=== PATIENT | female | born 1995 ===

== ENCOUNTER 2025-04-13 13:10 | Outpatient (AMB) | payer OTHER, SELFPAY ==
--- OUTSIDE RECORDS SUMMARY | 2025-04-13 13:13 | XMS_ITS | Clinical Summary ---
Author Organization [facility] Address [address] [place] [address] Phone Care Team Providers Care Commercial Director Name Role Phone Delaney Benítez MD Primary Care Provider [phone] Allergies Active Allergy Reactions Criticality Noted Date Comments Penicillins Hives,Itching High 09/09/2017 Other Reaction(s): S.O.B. Pertussis Vaccine,Adsorbed High Other Reaction(s): RASH, S.O.B. Pertussis Vaccines Seizures High 11/09/2024 Medications albuterol 2.5 mg /3 mL (0.083 %) nebulizer solution USE 1 VIAL VIA NEBULIZER EVERY 4 TO 6 HOURS Active Ventolin HFA 90 mcg/actuation inhaler INHALE 1 PUFF BY MOUTH FOUR TIMES DAILY FOR 30 DAYS NEEDED FOR WHEEZING Active lidocaine (LIDODERM) 5 % patchIndication s:Right-sided chest wall pain Apply 1 patch topically 1 (one) time each day. Remove & discard patch within 12 hours or as directed by . 30 each 5 04/26/20 25 Active Encounters Date Type Department Care Team Description 03/27/2025 5:22 PM EDT - 03/27/2025 5:[address] 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 Hydradenitis DX:Hydradenitis Inflammatory arthritis DX:Inflam matory arthritis Pseudoseizure DX:Pseudoseizure Obesity DX:Obesity Bipolar 1 disorder (CMS/HCC V24, CMS/HCC V28) Family History Medical History Relation Name Comments Seizures Brother Autism, schizop hrenia Depression Father Hypertension Maternal Grandfather schizop hrenia Thyroid disease Maternal Grandmother Depression Mother thyroid partial ly removed Other: polycystic ovarian syndrome Mother Thyroid disease Mother Diabetes Paternal Grandfather Parkinson's Disease Paternal Grandfather Depression Sister bipolar Other: polycystic ovarian syndrome Sister Breast cancer Neg Hx Colon cancer Neg Hx Ovarian cancer Neg Hx Relation Name Status Comments Brother Alive Father Alive Maternal Grandfather Alive Maternal Grandmother Alive Mother Alive Paternal Grandfather Alive Paternal Grandmother Alive Sister Alive Social History Tobacco Use Types Packs/Day Years Used Date Smoking Tobacco: Never Smokeless Tobacco: Never Alcohol Use Standard Drinks/Week Comments Not Currently 0 (1 standard drink = 0.6 oz pur e alcohol) Comments No Sex and Gender Information Value Date Recorded Sex Assigned at Female 11/09/2024 9:55 AM EST Legal Sex Female 1:01 AM EST Gender Identity Female 11/09/2024 9:55 AM EST Sexual Orientation Straight 11/09/2024 9: 55 AM EST Obstetrics History Last Filed Vital Signs Vital Sign Reading Time Taken Comments Blood Pressure 134/89 03/27/2025 12:22 PM EDT Pulse 88 03/27/2025 12:22 PM EDT Temperature 36.9 C (98.4 F) 03/27/2025 12:22 PM EDT Respiratory Rate 18 03/27/2025 12:22 PM EDT Oxygen Saturation 97% 03/27/2025 12:22 PM EDT Inhaled Oxygen Concentration - - Weight 126 kg (277 lb) 03/27/2025 12:22 PM EDT Height 160 cm (5' 3 ) 03/27/2025 12:22 PM EDT Body Mass Index 49.07 03/27/2025 12:22 PM EDT Plan of Treatment Health Maintenance Due Date Last Done Comments Hepatitis B Vaccines (1 of 3 - 19+ 3-dose series) 2016 Pneumococcal Vaccine: Pediatrics (0 to 5 Years) and At-Risk Patients (6 to 49 Years) (2 of 2 - PCV) 03/29/2022 03/29/2021 Cholesterol Screening (Lipid Panel) 08/10/2022 HIV Screening 08/10/2022 Hepatitis C Screening 08/10/2022 Social Influencers of Health Screening 08/10/2022 COVID-19 Vaccine ( season) 2024 04/06/2021, 03/16/2021 Depression Screening 09/07/2024 Cervical Cancer Screening: Pap Smear 10/08/2024 10/08/2021, 03/16/2018 Influenza Vaccine (#1) 2025 , 05/17/2023, 07/25/2022, Additional history exists DTaP,Tdap,and Td Vaccines (3 - Td or Tdap) 03/29/2031 03/29/2021, 09/27/2008 HPV Vaccines Completed 10/08/2011, 09/08, 09/27/2008 Meningococcal ACWY Vaccine Completed 12/06/2013, HIB Vaccines Aged Out No longer eligi ble based on patient's age to complete this topic Hepatitis A Vaccines Aged Out No long er eligible based on patient's age to complete this topic IPV Vaccines Aged Out No longer eligi ble based on patient's age to complete this topic MMR Vaccines Aged Out No longer eligi ble based on patient's age to complete this topic Meningococcal B Vaccine Aged Out No l onger eligible based on patient's age to complete this topic RSV Immunization Patients Under 20 months Aged Out No longer eligible based on patient's age to complete this topic Varicella Vaccines Aged Out No longer eligible based on patient's age to complete this topic Procedures Procedure Name Priority Date/Time Associated Diagnosis Comments URINALYSIS WITH REFLEX MICROSCOPIC STAT 03/27/2025 2:19 PM EDT URINALYSIS WITH REFLEX MICROSCOPIC STAT 03/27/2025 2:19 PM EDT CBC WITH AUTO DIFFERENTIAL STAT 03/27/2025 1:22 PM EDT LIPASE STAT 03/27/2025 1:22 PM EDT COMPREHENSIVE METABOLIC PANEL STAT 03/27/2025 1:22 PM EDT CBC AND DIFFERENTIAL STAT 03/27/2025 1:22 PM EDT PAP SMEAR Routine 10/08/2021 from Last 3 Months or Most Recently Relevant to Health Maintenance Results * Urinalysis with reflex microscopic (03/27/2025 2:19 PM EDT) Specific Rowe Urine 1.023 1.003 - 1.030 LAB URINALYSIS - AUTOMATED METHOD [facility] pH, Urine 6.0 5.0 - 8.0 pH LAB URINALYSIS - AUTOMATED METHOD 03/27/2025 3:43 PM [facility] Leukocytes, Urine Negative Negative LAB URINALYSIS - AUTOMATED METHOD 03/27/2025 3:43 PM [facility] Nitrite, Urine Negative Negative LAB URINALYSIS - AUTOMATED METHOD 03/27/2025 3:43 PM [facility] Protein, Urine Negative <=Trace mg/dL LAB URINALYSIS - AUTOMATED METHOD 03/27/2025 3:43 PM [facility] Glucose, Urine Negative Negative mg/dL LAB URINALYSIS - AUTOMATED METHOD 03/27/2025 3:43 PM [facility] Ketones, Urine Negative Negative mg/dL LAB URINALYSIS - AUTOMATED METHOD 03/27/2025 3:43 PM [facility] Urobilinogen, Urine 1.0 0.2 - 1.0 mg/dL LAB URINALYSIS - AUTOMATED METHOD 03/27/2025 3:43 PM [facility] Bilirubin, Urine Negative Negative LAB URINALYSIS - AUTOMATED METHOD 03/27/2025 3:43 PM [facility] Blood, Urine Negative Negative LAB URINALYSIS - AUTOMATED METHOD 03/27/2025 3:43 PM EDT [facility] Urine Urine specimen obtained by clean catch procedure / Unknown Non-blood Collection / Unknown 03/27/2025 2:19 PM EDT 03/27/2025 3:39 PM EDT us Cherelle Toribio MD LAB URINE ORDERABLES Final Resul t [facility] [address] [place] [address], [place] [phone] * (ABNORMAL) CBC auto differential (03/27/2025 1:22 PM EDT) WBC 10.2 4.8 - 10.8 K/mcL LAB HEMETOLOGY METHOD 03/27/2025 1:49 PM EDT [facility] RBC 5.10(H) 3.80 - 4.80 M/mcL LAB HEMETOLOGY METHOD 03/27/2025 1:49 PM EDT [facility] Hemoglobin 13.3 11.5 - 16.0 g/dL LAB HEMETOLOGY METHOD 03/27/2025 1:49 PM EDT [facility] Hematocrit 40.7 35.0 - 47.0 % LAB HEMETOLOGY METHOD 03/27/2025 1:49 PM EDT [facility] MCV 79.6 79.0 - 98.0 FL LAB HEMETOLOGY METHOD 03/27/2025 1:49 PM EDT [facility] MCH 26.0(L) 27.0 - 32.0 pcg LAB HEMETOLOGY METHOD 03/27/2025 1:49 PM [facility] MCHC 32.7 32.0 - 37.0 g/dL LAB HEMETOLOGY METHOD 03/27/2025 1:49 PM EDT [facility] RDW 13.0 11.0 - 15.0 % LAB HEMETOLOGY METHOD 03/27/2025 1:49 PM [facility] Platelets 240 130 - 400 K/mcL LAB HEMETOLOGY METHOD 03/27/2025 1:49 PM [facility] MPV 10.0 7.0 - 11.0 FL LAB HEMETOLOGY METHOD 03/27/2025 1:49 PM [facility] NRBC 0.0 <1.0 % LAB HEMETOLOGY METHOD 03/27/2025 1:49 PM [facility] NRBC Absolute 0.00 <0.10 K/mcL LAB HEMETOLOGY METHOD 03/27/2025 1:49 PM [facility] Neutrophils Relative 70.2 % LAB HEMETOLOGY METHOD 03/27/2025 1:49 PM [facility] Lymphocytes Relative 22.0 % LAB HEMETOLOGY METHOD 03/27/2025 1:49 PM [facility] Monocytes Relative 4.4 % LAB HEMETOLOGY METHOD 03/27/2025 1:49 PM [facility] Eosinophils Relative 2.7 % LAB HEMETOLOGY METHOD 03/27/2025 1:49 PM [facility] Basophils Relative 0.2 % LAB HEMETOLOGY METHOD 03/27/2025 1:49 PM [facility] Immature Granulocytes Relative 0.5 % LAB HEMETOLOGY METHOD 03/27/2025 1:49 PM [facility] Neutrophils Absolute 7.16(H) 1.50 - 7.00 K/mcL LAB HEMETOLOGY METHOD 03/27/2025 1:49 PM [facility] Lymphocytes Absolute 2.25 1.00 - 5.00 K/mcL LAB HEMETOLOGY METHOD 03/27/2025 1:49 PM [facility] Monocytes Absolute 0.45 0.20 - 1.00 K/mcL LAB HEMETOLOGY METHOD 03/27/2025 1:49 PM EDT [facility] Eosinophils Absolute 0.28 0.00 - 0.50 K/[facility] LAB HEMETOLOGY METHOD 03/27/2025 1:49 PM EDT [facility] Basophils Absolute 0.02 0.00 - 0.20 K/[facility] LAB HEMETOLOGY METHOD 03/27/2025 1:49 PM EDT [facility] Immature Granulocytes Absolute 0.05(H) 0.00 - 0.03 K/[facility] LAB HEMETOLOGY METHOD 03/27/2025 1:49 PM EDT [facility] Blood Venous blood specimen / Unknown Venipuncture / Unknown 03/27/2025 1:22 PM EDT 03/27/2025 1:34 PM EDT us Cherelle Toribio MD LAB BLOOD ORDERABLES Final Resul t Performing Organization Address City/[facility]/ZIP Co de Phone Number [facility] [address] [place] [address], [place] [phone] * Lipase (03/27/2025 1:22 PM EDT) [facility] Lipase 15 13 - 75 unit/L LAB CHEMISTRY METHOD 03/27/2025 2:36 PM EDT [facility] Blood Venous blood specimen / Unknown Venipuncture / Unknown 03/27/2025 1:22 PM EDT 03/27/2025 1:34 PM EDT us Cherelle Toribio MD LAB BLOOD ORDERABLES Final Resul t [facility] [address] [place] [address], [place] [phone] * (ABNORMAL) Comprehensive metabolic panel (03/27/2025 1:22 PM EDT) [facility] Sodium 138 133 - 145 mmol/L LAB CHEMISTRY METHOD 03/27/2025 2:38 PM [facility] Potassium 4.3 3.5 - 5.5 mmol/L LAB CHEMISTRY METHOD 03/27/2025 2:38 PM [facility] Chloride 107 96 - 110 mmol/L LAB CHEMISTRY METHOD 03/27/2025 2:38 PM [facility] CO2 26 21 - 32 mmol/L LAB CHEMISTRY METHOD 03/27/2025 2:38 PM [facility] Anion Gap 5 3 - 11 LAB CHEMISTRY METHOD 03/27/2025 2:38 PM [facility] Glucose 91 70 - 100 mg/dL LAB CHEMISTRY METHOD 03/27/2025 2:38 PM [facility] BUN 15 5 - 25 mg/dL LAB CHEMISTRY METHOD 03/27/2025 2:38 PM [facility] Creatinine 0.62 0.50 - 1.10 mg/dL LAB CHEMISTRY METHOD 03/27/2025 2:38 PM [facility] eGFR 125 >=60 mL/min/1. 73m2 LAB CHEMISTRY METHOD 03/27/2025 2:38 PM [facility] Comment:Calculation based on the Chronic Kidney Disease Epidemiology Collaboration (CKD-EPI) equation refit without adjustment for race. BUN/Creatinine Ratio 24.2 LAB CHEMISTRY METHOD 03/27/2025 2:38 PM [facility] Calcium 9.6 8.5 - 10.5 mg/dL LAB CHEMISTRY METHOD 03/27/2025 2:38 PM [facility] AST (SGOT) 9(L) 10 - 42 unit/L LAB CHEMISTRY METHOD 03/27/2025 2:38 PM [facility] ALT (SGPT) 22 10 - 60 unit/L LAB CHEMISTRY METHOD 03/27/2025 2:38 PM [facility] Alkaline Phosphatase 79 42 - 121 unit/L LAB CHEMISTRY METHOD 03/27/2025 2:38 PM EDT [facility] Total Protein 7.6 6.0 - 8.0 g/dL LAB CHEMISTRY METHOD 03/27/2025 2:38 PM EDT [facility] Albumin 4.1 3.2 - 5.0 g/dL LAB CHEMISTRY METHOD 03/27/2025 2:38 PM EDT [facility] Total Bilirubin 0.3 0.0 - 1.4 mg/dL LAB CHEMISTRY METHOD 03/27/2025 2:38 PM EDT [facility] Blood Venous blood specimen / Unknown Venipuncture / Unknown 03/27/2025 1:22 PM EDT 03/27/2025 1:34 PM EDT Cherelle Toribio MD LAB BLOOD ORDERABLES Final Resul t Performing Organization Address City/[facility] Co de Phone Number [facility] [address] [place] [address], [place] [phone] * Pap smear (10/08/2021) 10/08/2021 Narrative HISTORICAL TESTING LAB RESULTING AGENCY - 10/23/2021 2:05 PM EST [id number] THINPREP PAP, IMAGED: NEGATIVE FOR SQUAMOUS INTRAEPITHELIAL LESION AND MALIGNANCY . ABUNDANT BLOOD PRESENT. NOTE: ADEQUACY EVALUATED SATISFACTORY FOLLOWING REPROCESSING WITH THE ACID WASH PROCEDURE. NOTE: THE PAP TEST IS A SCREENING TEST WITH AN INHERENT FALSE NEGATIVE RATE. AUTOMATED PRESCREENING OF ALL LIQUID BASED SPECIMENS IS PERFORMED BY THE THINPREP IMAGING SYSTEM UNLESS OTHERWISE STATED. ERLIN BALES(ASCP) (CASE ELECTRONICALLY SIGNED 10 23 2021) ADEQUACY: SATISFACTORY ENDOCERVICAL/TRANSFORMATION ZONE COMPONENT PRESENT. SOURCE: THINPREP PAP HPV IF ASCUS, CERVICAL, IMAGED CLINICAL INFORMATION: HPV IF DIAGNOSIS OF ASCUS. HORMONES, PAP HX NEG 2017, LMP 09/25/21, Z12.4 Concepcion Steve CNM LAB CYTOLOGY ORDERABLES Final Result HISTORICAL TESTING LAB RESULTING AGENCY from Last 3 Months or Most Recently Relevant to Health Maintenance Insurance [facility] Care Teams Commercial Director Relationship Specialty Start Date End Date Delaney Benítez MD [address] [place] [id number] PCP - General Internal Medicine 08/03/18
--- NOTE | 2025-04-13 13:21 | A.OFFPC_ITS ---
Vital Signs 04/13/25 13:22 Height 5 ft 3 in Weight 277 lb 8 oz BMI 49.2 BP 116/60 Blood Pressure Location Lt brachial Position Sitting Pulse 87 Pulse Source Pulse Oximeter Temp Source Temporal Artery Scan Pulse Oximetry (%) 97 Oxygen Delivery Method Room Air Intake Visit Reasons: [employer] // PE Request Furniture Removalist Required: No Accompanied by: Self / Same As Patient Allergies Penicillins Allergy (Severe, Verified 04/13/25 13:49) Hives pertussis vaccine,fluid Allergy (Severe, Verified 04/13/25 13:49) seizures Medication List - Last Reconciled 04/13/25 by MUNIRA Patel acetaminophen ER (Tylenol 8 Hour) 650 mg PO Q8H aripiprazole 2 mg PO BEDTIME budesonide-formoterol 160-4.5 mcg/actuation (Symbicort) 2 puffs inhalation BID cetirizine (Zyrtec) 10 mg PO DAILY PRN Tobacco use date assessed: 04/13/25 Dental Screening Dental Screen Date: 04/13/25 Did you have a dental visit in the last 12 months?: Yes Did you have a dental problem in the last 6 months where you did not have access to dental care?: No Was dental information given to patient?: Patient has dentist HPI [employer] // PE Request HPI Details The patient is presenting to establish care Previous PCP: Cheli Roca MD, [facility] in [place] Last visit: 10/05/24 Last PE: 10/05/24 Specialist: Psychiatry, [facility] in [place] for Kidney stones, OBGYN: [facility] in [place] Past medical history: [place], bipolar d/o fibromyalgia, Lichen Sclerosis, eczema, had her appendix removed Medications: Family HX: Mother DM2 and HTN, Dad DM2, bipolar, brother autism and schizophrenia. Mother had half of her thyroid removed and she also has fibromyalgia Problem: Reports that she has never seen a precision aircraft systems assembler before. Her fibromyalagia was diagnosed by her PCP. Reports that she was tried on Pregabalin but this made her drowsy, so she had to stop. She is also wondering she could get something for eczema, intermittent flare ups. [facility] Medical History (Updated 04/13/25 @ 23:04 by MUNIRA Patel) Swelling of multiple joints Multiple joint pain Panic attacks Bipolar disorder Fibromyalgia Asthma Surgical History (Updated 04/13/25 @ 22:50 by MUNIRA Patel) History of appendectomy Family History (Updated 04/13/25 @ 22:51 by MUNIRA Patel) Father Age: 45 Bipolar disorder Diabetes type 2 Mother Age: 47 Diabetes type 2 Hypertension Fibromyalgia S/P thyroid surgery Brother Age: 23 Autism Schizophrenia Fatty liver Other Diabetes mellitus Social History (Updated 04/13/25 @ 13:42 by Martha Abdul MA) Household Members: Significant Other and Children Both parents involved: Yes Caregiver staying overnight: No Housing: Apartment Alcohol intake: never Patient Tobacco Use Status: Never used Tobacco e-Cigarette/Vaping Use: Never Used Use of substances other than those prescribed or required for medical reasons: No service: No Current occupational status: employed Current occupation: N Current occupational exposures/hazards: No Cognitive needs: No Hearing needs: No Vision needs: Yes Questionnaire PHQ-9 Over the last 2 weeks, how often have you been bothered by any of the following problems? 1. Little interest or pleasure in doing things: not at all 2. Feeling down, depressed, or hopeless: not at all 3. Trouble falling or staying asleep, or sleeping too much: several days 4. Feeling tired or having little energy: several days 5. Poor appetite or overeating: several days 6. Feeling bad about yourself - or that you are a failure or have let yourself or your family down: not at all 7. Trouble concentrating on things, such as reading the newspaper or watching television: several days 8. Moving or speaking so slowly that other people could have noticed. Or the opposite - being so fidgety or restless that you have been moving around a lot more than usual: not at all 9. Thoughts that you would be better off or of hurting yourself in some way: not at all Total score: 4 Source: Developed by Drs. Bladimir Archibald, Ara Fernando, Theodore Antonio and colleagues, with an educational james from [employer]. Thrive Questionnaire Date Thrive assessed: 04/13/25 I am a: Patient What is your living situation today?: I have a steady place to live Within the past 12 months, did the food you bought not last and you didn't have the money to get more?: Never true Within the past 12 months, did you worry whether your food would run out before you got money to buy more?: Sometimes True Do you have trouble paying for medicines?: Yes Do you have trouble getting transportation to medical appointments?: No Do you have trouble paying your heating and electricity bill?: No Do you have trouble taking care of your child, family member or friend?: No Do you have trouble with day-to-day activities such as bathing, preparing meals, shopping, managing finances, etc.?: No Are you currently unemployed and looking for a job?: No Are you interested in more education?: No Please select the resources that you would like help with: None Currently or been in a relationship where the following occur: No concerns reported THRIVE Score: 1 AUDIT C Alcohol Use Questionnaire (AUDIT-C) 1. How often do you have a drink containing alcohol?: Never 3. How often do you have six or more drinks on one occasion?: Never Total Score: 0 MARCIO-7 AMB Questionnaire MARCIO-7 Date MARCIO - 7 assessed: 04/13/25 Feeling nervous, anxious, or on edge: 0 = Not at all Not being able to stop or control worryin = Not at all Worrying too much about different things: 1 = Several days Trouble relaxin = Several days Being so restless that it is hard to sit still: 1 = Several days Becoming easily annoyed or irritable: 1 = Several days Feeling afraid as if something awful might happen: 1 = Several days Total MARCIO-7 score (0-4 normal; 5-9 mild; 10-14 moderate; 15-21 severe): 5 Source: Developed by Drs. Bladimir Archibald, Ara Fernando, Theodore Antonio and colleagues, with an educational james from [employer]. Review of Systems Const Denies headache(s) Eyes Denies loss of vision ENT Denies vertigo, Denies dizziness, Denies headache(s) and Denies sore throat Card Denies chest pain, Denies leg edema and Denies lightheadedness Resp Denies cough, Denies hemoptysis and Reports wheezing (During poor quality air days) GI Denies abdominal pain, Denies melena, Denies constipation, Denies diarrhea and Denies vomiting Denies urinary frequency, Denies dysuria and Denies urinary urgency Musc Reports arthralgias (multiple (shoulders, elbows, neck, knees, toes)), Reports joint swelling (Intermittent knees), Denies numbness and Denies tingling Skin/Breast Reports other (Eczema face and legs) Neuro Denies Abnormal speech present, Denies behavioral changes, Denies vertigo, Denies dizziness, Denies headache(s), Denies loss of vision, Denies memory loss, Denies numbness and Denies tingling Psych Denies anxiety, Denies behavioral changes, Reports depression, Denies memory loss and Denies panic attacks Ted/Lymph Denies easy bleeding and Denies easy bruising Aller/Immun Reports wheezing (During poor quality air days) Physical exam (Primary Care) Vital Signs: Last Vital Signs Pulse 87 04/13/25 13:22 BP 116/60 04/13/25 13:22 Pulse Ox 97 04/13/25 13:22 Oxygen Delivery Method Room Air 04/13/25 13:22 BMI result Body Mass Index 49.2 Tobacco/Smoking Status: Tobacco use Status Tobacco use date assessed 04/13/25 04/13/25 13:46 Patient Tobacco Use Status Never used Tobacco 04/13/25 13:46 e-Cigarette/Vaping Use Never Used 04/13/25 13:46 PHQ-9: PHQ-9 Score PHQ-9: Total score 4 04/13/25 14:04 Thrive Assessment: Date of Thrive Assessment Date Thrive assessed 04/13/25 04/13/25 13:46 Currently or been in a relationship where the following occur: No concerns reported Const General: healthy appearing, no acute distress, alert and awake Nutritional Appearance: well nourished Orientation/consciousness: oriented to person, oriented to place and oriented to time HENMT Ears: TM's normal bilaterally General nose exam: Normal nasal mucous membranes and turbinates present Eyes Conjunctivae: conjunctivae normal Sclerae: sclerae normal Pupils: Equal, round and reactive pupils present Neck Neck: Yes no lymphadenopathy and Yes no JVD Thyroid: Thyroid normal Carotids: no bruits Resp Effort & Inspection: normal respiratory effort and not tachypneic Auscultation: no crackles, no rales, no rhonchi and no wheezes Cardio Rate: regular rate Rhythm: regular rhythm Heart sounds: no murmurs and normal S1 and S2 GI Palpation (GI): Soft to palpation, nontender, no hepatomegaly and no splenomegaly Auscultation: normal bowel sounds General: Yes no CVA tenderness Back/Spine/Pelvis Back: no CVA tenderness Cervical Spine: No Cervical spine tenderness Thoracic/Lumbar Spine: No thoracic spinal tenderness and No lumbar spinal tenderness Skin General skin exam: dry skin and other (Intermittent flare-ups of eczema-mildly red patches on face) Neuro General: oriented to person, oriented to place and oriented to time Cranial nerves: Yes Equal, round and reactive pupils present Speech: No Abnormal speech present Gait exam (Neuro): Normal gait present Motor exam (neuro): no tremor noted Extrem Right upper extremity: full ROM, shoulder/upper arm Details: no tenderness and no swelling and elbow/forearm Details: no tenderness and no swelling Left upper extremity: full ROM, shoulder/upper arm Details: no tenderness and no swelling and elbow/forearm Details: no tenderness and no swelling Right lower extremity: full ROM and knee Details: no tenderness and no swelling; no edema Left lower extremity: full ROM and knee Details: no tenderness and no swelling; no edema Psych Mental Status: mental status grossly normal Speech and movement: Normal speech and movement present Affect: normal affect Attitude: cooperative Thought process: Normal thought process present Coding Level of Care Code New Pt Level 4 (14736) Diagnoses Multiple joint pain M25.50 Swelling of multiple joints M25.40 Bilateral impacted cerumen H61.23 Time Spent (min) 41 Assessment & Plan Assessment & Plan (1) Multiple joint pain: Code(s): M25.50 - Pain in unspecified joint Category: Medical (2) Swelling of multiple joints: Code(s): M25.40 - Effusion, unspecified joint Category: Medical (3) Bilateral impacted cerumen: Code(s): H61.23 - Impacted cerumen, bilateral Category: Medical Plan The plan includes addressing the patient's fibromyalgia by referring her to a precision aircraft systems assembler for further evaluation and management, as they may offer more advanced treatment options. An antinuclear antibody BEATRIZ) test will be conducted to rule out other potential conditions, although it may not be indicative of fibromyalgia. For eczema, a prescription for hydrocortisone cream has been provided, to be applied three times a day as needed, particularly on the face and legs. The patient is advised to monitor the effectiveness of the treatment and report back if symptoms persist. Regarding asthma management, the patient will be prescribed an albuterol inhaler as a rescue medication, in addition to continuing her current regimen with Symbicort. She is advised to avoid triggers such as poor air quality and to use the inhaler as needed. The patient will also undergo ear wax removal using [id number] drops, with instructions to follow up if the issue persists. If necessary, an appointment for professional ear cleaning will be scheduled. Patient was informed and verbally consented to the use of an ambient scribe for clinic note documentation during this visit. Orders: Orders BEATRIZ Reflex Titer and Pattern Today L20.9 - Atopic dermatitis, unspecified, Z76.89 - Persons encountering health services in other specified circumstances Comprehensive [place]. Panel Fast Today L20.9 - Atopic dermatitis, unspecified, Z76.89 - Persons encountering health services in other specified circumstances Lipid Panel Today L20.9 - Atopic dermatitis, unspecified, Z76.89 - Persons encountering health services in other specified circumstances UA CC w/rflx Micro + Cult Today L20.9 - Atopic dermatitis, unspecified, Z76.89 - Persons encountering health services in other specified circumstances Erythrocyte Sedimentation Rate Today L20.9 - Atopic dermatitis, unspecified, Z76.89 - Persons encountering health services in other specified circumstances Hemoglobin A1c Today L20.9 - Atopic dermatitis, unspecified, Z76.89 - Persons encountering health services in other specified circumstances Complete Blood Count Auto Diff Today L20.9 - Atopic dermatitis, unspecified, Z76.89 - Persons encountering health services in other specified circumstances TSH reflex Free T4 Today L20.9 - Atopic dermatitis, unspecified, Z76.89 - Persons encountering health services in other specified circumstances Vitamin D 25-OH Total Today L20.9 - Atopic dermatitis, unspecified, Z76.89 - Persons encountering health services in other specified circumstances CRP High Sensitivity Today L20.9 - Atopic dermatitis, unspecified, Z76.89 - Persons encountering health services in other specified circumstances Cyclic Citrullinated Peptide Today L20.9 - Atopic dermatitis, unspecified, Z76.89 - Persons encountering health services in other specified circumstances Uric Acid Today M25.40 - Effusion, unspecified joint, M25.50 - Pain in unspecified joint Referrals Rheumatology Referral M25.40 - Effusion, unspecified joint, M25.50 - Pain in unspecified joint, M79.7 - Fibromyalgia Medications: New albuterol sulfate 90 mcg/actuation (Ventolin HFA) 2 puffs inhalation Q4-6H PRN 8.5 grams 3RF shortness of breath or wheezing budesonide-formoterol 160-4.5 mcg/actuation (Symbicort) 2 puffs inhalation BID 10.2 grams 3RF hydrocortisone 1% (Cortisone (hydrocortisone)) 1 appl topical TID PRN 454 grams 3RF skin irritation
[2025-04-13 13:22] VITALS: BP 116/60; PULSE 87; O2SAT 97; BMI 49.2
== END 2025-04-13 14:34 | disposition home or self-care (01) ==
LOC: HO.HMCH 13:11
DX: M25.50 Pain in unspecified joint (principal); M25.40 Effusion, unspecified joint; H61.23 Impacted cerumen, bilateral